=== PATIENT | female | born 1945 | race Hispanic/Latino ===

== ENCOUNTER 2024-01-15 11:37 | Emergency (ER) | payer OTHER, MEDICARE ==
[~2024-01-15] VITALS: Ht 152.4 cm; Wt 47.6 kg
[2024-01-15 12:05] VITALS: BP 152/69; PULSE 69; RESP 18; TEMP 98.4; O2SAT 98
[2024-01-15] MEDS: acetaMINOPHEN WITH coDEINE 1 TAB TAB PO ONE (13:46)
== END 2024-01-15 14:51 | disposition home or self-care (01) ==
LOC: EDH 11:37
DX: S52.612A Displaced fracture of left ulna styloid process, initial encounter for closed fracture (principal); W06.XXXA Fall from bed, initial encounter; Y93.89 Activity, other specified; Y92.89 Other specified places as the place of occurrence of the external cause; Y99.8 Other external cause status
CPT/HCPCS: 29105; 29515; 73110